=== PATIENT | male | born 1940 | race Caucasian/White ===

== ENCOUNTER 2017-03-09 16:07 | Emergency (ER) | payer OTHER, BC ==
[~2017-03-09] VITALS: Ht 177.8 cm; Wt 84.6 kg
[~2017-03-09 16:07] MED LIST: ASPIRIN81 M2 PO; FLOMAX0.4 MG PO; METOPROLOL TART25 MG PO; PERCOCET 5/31 TABLET PO; REMICADE10 MG/ML IV; ZOFRAN4 MG PO
[2017-03-09 18:07] LABS: HEMATOCRIT 46.6 % (38.0-50.0); MCH 28.7 PG (29.0-34.0); MCHC 34.1 G/DL (30.0-36.0); MCV 84.1 FL (86-99); MEAN PLAT.VOLUME 11.1 uM^3 (9.0-12.4); PLATELET COUNT 234 K/uL (156-360); RBC DIS.WIDTH-CV 13.3 % (11.8-14.6); RBC DIS.WIDTH-SD 40.8 % (39-53); RED BLOOD COUNT 5.54 M/uL (4.00-5.50); WHITE BLOOD COUNT 10.7 K/uL (4.1-10.2)
[2017-03-09 18:19] LABS: CHLORIDE 108 mEq/L (99-109); POTASSIUM 3.9 mEq/L (3.7-5.4); SODIUM 141 mEq/L (136-147)
[2017-03-09 18:21] LABS: GLUCOSE 84 mg/dL (70-99)
[2017-03-09 18:23] LABS: ANION GAP 10 MEQ/L (2-14)
[2017-03-09 18:25] LABS: GFR ESTIMATE (CALCULATED) > 59 mL/min/
[2017-03-09 18:26] LABS: UREA NITROGEN (BUN) 22 mg/dL (9-23)
[2017-03-09 18:28] LABS: TROP-I INTERPRETATION NEGATIVE; TROPONIN-I 0.01 ng/mL (0.0-0.30)
[2017-03-09 19:00] VITALS: BP 124/81
== END 2017-03-09 19:27 | disposition home or self-care (01) ==
LOC: EME 16:07
DX: R07.9 Chest pain, unspecified (principal); Z86.73 Personal history of transient ischemic attack (TIA), and cerebral infarction without residual deficits; Z95.1 Presence of aortocoronary bypass graft; Z79.82 Long term (current) use of aspirin
CPT/HCPCS: 71020; 80048; 84484; 85027; 93005; 99281; 99284

== ENCOUNTER 2017-11-18 04:42 | Emergency (ER) | payer OTHER, BC ==
[~2017-11-18] VITALS: Ht 177.8 cm; Wt 85.9 kg
[2017-11-18 05:49] LABS: BASOPHIL (%) 0.1 % (0-1); EOSINOPHIL (%) 0 % (0-5); HEMATOCRIT 41.5 % (38.0-50.0); HEMOGLOBIN 14.6 G/DL (12.5-16.6); IMMATURE GRANULOCYTE (%) 0.7 % (0.0-0.7); LYMPHOCYTE (%) 7.8 % (15-42); LYMPHOCYTE COUNT 1.7 K/uL (1.0-2.8); MCH 29.8 PG (29.0-34.0); MCHC 35.2 G/DL (30.0-36.0); MCV 84.7 FL (86-99); MONOCYTE (%) 13.4 % (3-12); MONOCYTE COUNT 2.9 K/uL (0-0.8); NEUTROPHIL COUNT 16.6 K/uL (1.8-6.4); PLATELET COUNT 141 K/uL (156-360); RBC DIS.WIDTH-CV 13.1 % (11.8-14.6); WHITE BLOOD COUNT 21.4 K/uL (4.1-10.2)
[2017-11-18 05:58] LABS: ALBUMIN 3.6 g/dL (3.2-4.8); INTER. NORMALIZED RATIO 1.3
[2017-11-18 05:59] LABS: CHLORIDE 102 mEq/L (99-109); POTASSIUM 3.6 mEq/L (3.7-5.4); SODIUM 132 mEq/L (136-147)
[2017-11-18 06:01] LABS: GLUCOSE 130 mg/dL (70-99); PTT 30.5 SEC (25-37); TOTAL PROTEIN 6.6 g/dL (6.4-8.3)
[2017-11-18 06:03] LABS: TOTAL BILIRUBIN 1.4 mg/dL (0.0-1.0)
[2017-11-18 06:04] LABS: ALKALINE PHOSPHATASE 67 IU/L (3-129)
[2017-11-18 06:05] LABS: CREATININE 1.2 mg/dL (0.6-1.3); GFR ESTIMATE (CALCULATED) > 59 mL/min/ (58.99-99999)
[2017-11-18 06:06] LABS: AST (GOT) 21 IU/L (2-34); UREA NITROGEN (BUN) 23 mg/dL (9-23)
[2017-11-18 06:08] LABS: ALT (GPT) 15 IU/L (3-49)
[2017-11-18 06:13] LABS: TROP-I INTERPRETATION NEGATIVE; TROPONIN-I 0.02 ng/mL (0.0-0.30)
[2017-11-18 07:56] LABS: APPEARANCE SL.HAZY ((CLEAR)); BILIRUBIN NEGATIVE; BLOOD SMALL; COLOR YELLOW ((YELLOW)); GLUCOSE (STRIP) NEGATIVE; KETONES NEGATIVE; LEUKOCYTES LARGE; NITRITE POSITIVE; PROTEIN (STRIP) 30; SPECIFIC GRAVITY 1.021 (1.000-1.030); UROBILINOGEN 0.2 MG/DL (0.2-1.0)
[2017-11-18 08:30] LABS: BACTERIA 3+ /HPF; MUCUS NONE SEEN /LPF; WHITE BLOOD CELLS TNTC /HPF (0-5)
[2017-11-18 08:31] LABS: EPITHELIAL CELLS RARE /HPF; RED BLOOD CELLS 0-5 /HPF (0-5); UCUL ADDED? YES
[2017-11-18] MEDS ORDERED: CIPRO500 MG PO (09:01)
[2017-11-18 09:45] VITALS: BP 109/61
[2017-11-19] MEDS ORDERED: PREVACID30 MG PO (07:54)
[2017-11-19] MEDS ORDERED: KEFLEX500 MG PO (07:57)
[2017-11-19] MEDS ORDERED: TIMOLOL MALEATE15 ML LEFT EYE (07:58)
[2017-11-19] MEDS ORDERED: REPATHA SU140 MG/1 M SC (07:58)
== END 2017-11-18 10:19 | disposition home or self-care (01) ==
LOC: EME → EDBD 04:42 → EME 04:42
PROVIDERS: Emergency Medicine
DX: N39.0 Urinary tract infection, site not specified (principal); E86.0 Dehydration; R94.31 Abnormal electrocardiogram [ECG] [EKG]; N20.0 Calculus of kidney; K57.30 Diverticulosis of large intestine without perforation or abscess without bleeding; N40.1 Benign prostatic hyperplasia with lower urinary tract symptoms; I25.10 Atherosclerotic heart disease of native coronary artery without angina pectoris; Z79.82 Long term (current) use of aspirin; Z95.1 Presence of aortocoronary bypass graft; Z87.19 Personal history of other diseases of the digestive system; Z98.890 Other specified postprocedural states; Z90.49 Acquired absence of other specified parts of digestive tract
CPT/HCPCS: 70450; 71045; 74177; 80053; 81003; 83605; 84484; 85025; 85610; 85730; 87040; 87077; 87086; 87186; 87801; 93005; 99281; 99285; J2405; J3010

== ENCOUNTER 2017-11-19 02:54 | Inpatient (IN) | payer OTHER, BC ==
[~2017-11-19] VITALS: Ht 177.8 cm; Wt 88.6 kg
[~2017-11-19 02:54] MED LIST changes: +CIPRO500 MG PO
[2017-11-19 03:24] LABS: BASOPHIL (%) 0.2 % (0-1); BASOPHIL COUNT 0.1 K/uL (0-0.1); EOSINOPHIL (%) 0.1 % (0-5); HEMATOCRIT 39.7 % (38.0-50.0); HEMOGLOBIN 13.9 G/DL (12.5-16.6); IMMATURE GRANULOCYTE (%) 1.3 % (0.0-0.7); LYMPHOCYTE (%) 6.7 % (15-42); LYMPHOCYTE COUNT 1.7 K/uL (1.0-2.8); MCH 29.6 PG (29.0-34.0); MCV 84.5 FL (86-99); MONOCYTE COUNT 2.6 K/uL (0-0.8); NEUTROPHIL (%) 81.7 % (45-76); NEUTROPHIL COUNT 20.7 K/uL (1.8-6.4); PLATELET COUNT 123 K/uL (156-360); RBC DIS.WIDTH-CV 13.3 % (11.8-14.6); RBC DIS.WIDTH-SD 41.4 % (39-53); WHITE BLOOD COUNT 25.4 K/uL (4.1-10.2)
[2017-11-19 03:32] LABS: CHLORIDE 105 mEq/L (99-109); POTASSIUM 3.9 mEq/L (3.7-5.4); SODIUM 134 mEq/L (136-147)
[2017-11-19 03:37] LABS: CREATININE 1.3 mg/dL (0.6-1.3); GFR ESTIMATE (CALCULATED) 57 mL/min/ (58.99-99999)
[2017-11-19 03:38] LABS: UREA NITROGEN (BUN) 21 mg/dL (9-23)
[2017-11-19 03:50] LABS: GLUCOSE 206 mg/dL (70-99)
[2017-11-19] MEDS ORDERED: PREVACID30 MG PO (07:54)
[2017-11-19] MEDS ORDERED: KEFLEX500 MG PO (07:57)
[2017-11-19] MEDS ORDERED: TIMOLOL MALEATE15 ML LEFT EYE (07:58)
[2017-11-19] MEDS ORDERED: REPATHA SU140 MG/1 M SC (07:58)
[2017-11-19 09:56] VITALS: BP 122/65
[2017-11-19 11:35] VITALS: BP 119/64
[2017-11-19 15:43] VITALS: BP 128/61
[2017-11-19 19:56] VITALS: BP 112/53
[2017-11-19 23:55] VITALS: BP 104/52
[2017-11-20 04:07] VITALS: BP 123/63
[2017-11-20 05:59] LABS: BASOPHIL (%) 0.2 % (0-1); EOSINOPHIL (%) 1.2 % (0-5); EOSINOPHIL COUNT 0.2 K/uL (0-0.3); HEMATOCRIT 39.2 % (38.0-50.0); HEMOGLOBIN 13.2 G/DL (12.5-16.6); IMMATURE GRANULOCYTE (%) 0.4 % (0.0-0.7); LYMPHOCYTE (%) 13.9 % (15-42); LYMPHOCYTE COUNT 1.9 K/uL (1.0-2.8); MCH 28.5 PG (29.0-34.0); MCHC 33.7 G/DL (30.0-36.0); MCV 84.7 FL (86-99); MONOCYTE (%) 9.7 % (3-12); MONOCYTE COUNT 1.3 K/uL (0-0.8); NEUTROPHIL (%) 74.6 % (45-76); NEUTROPHIL COUNT 10.2 K/uL (1.8-6.4); PLATELET COUNT 135 K/uL (156-360); RBC DIS.WIDTH-CV 13.5 % (11.8-14.6); RBC DIS.WIDTH-SD 42.3 % (39-53); RED BLOOD COUNT 4.63 M/uL (4.00-5.50); WHITE BLOOD COUNT 13.7 K/uL (4.1-10.2)
[2017-11-20 06:25] LABS: ALBUMIN 2.9 G/DL (3.2-4.8); ALKALINE PHOSPHATASE 56 IU/L (3-129); ALT (GPT) 10 IU/L (3-49); AST (GOT) 21 IU/L (2-34); CHLORIDE 108 MEQ/L (99-109); GFR ESTIMATE (CALCULATED) > 59 mL/min/ (58.99-99999); POTASSIUM 4.2 MEQ/L (3.7-5.4); SODIUM 139 MEQ/L (136-147); TOTAL BILIRUBIN 0.8 MG/DL (0.0-1.0); TOTAL PROTEIN 5.8 G/DL (6.4-8.3); UREA NITROGEN (BUN) 19 mg/dL (9-23)
[2017-11-20 06:26] LABS: GLUCOSE 97 mg/dL (70-99)
[2017-11-20 07:53] VITALS: BP 114/64
[2017-11-20] MEDS ORDERED: CEFTIN500 MG PO (13:22)
== END 2017-11-20 14:51 | disposition home or self-care (01) | DRG 690 ==
LOC: EME 02:54 → 5SOUTH 07:44 → EDOF 07:44 → ENRESERV 07:58 → 5SOUTH 09:29
PROVIDERS: Hospitalist; Physician Assistant
DX: N30.00 Acute cystitis without hematuria (principal); R78.81 Bacteremia; B96.20 Unspecified Escherichia coli [E. coli] as the cause of diseases classified elsewhere; Z95.2 Presence of prosthetic heart valve; Z95.1 Presence of aortocoronary bypass graft; N17.9 Acute kidney failure, unspecified; L40.50 Arthropathic psoriasis, unspecified; I10 Essential (primary) hypertension; I25.10 Atherosclerotic heart disease of native coronary artery without angina pectoris
CPT/HCPCS: 70450; 71045; 74177; 80048; 80053; 81003; 83605; 84484; 85025; 85610; 85730; 87040; 87077; 87086; 87186; 87801; 93005; 99281; 99285; J0692; J0696; J1650; J2405; J3010; J7030; J7120